=== PATIENT | male | born 1950 | race Caucasian/White ===

== ENCOUNTER 2024-08-14 14:15 | Day surgery (SDC) | payer OTHER, SELFPAY ==
[2024-08-14] VITALS (10 sets, daily range): BP systolic 97–122; BP diastolic 55–92; BMI 28.5
[2024-08-14 15:15] LABS: ACT-LR - POC 255 Seconds (116-155)
[2024-08-14 15:23] LABS: ACT-LR - POC 306 Seconds (116-155)
[2024-08-14 15:44] LABS: ACT-LR - POC 232 Seconds (116-155)
[2024-08-14 16:08] LABS: ACT-LR - POC 226 Seconds (116-155)
--- NOTE | 2024-08-14 16:22 | ITS.CL.CATH ---
[employer] - Catheterization
Cardiac Catheterization
Procedure Report:
ANGIOPLASTY REPORT
Date of Procedure: August 14, 2024
Referring: Dr. Osmin Ojeda
INDICATIONS: This is a 74-year-old gentleman who presented to [facility] with an acute evolving inferior wall myocardial infarction. He has a prior history of a traumatic brain injury and remote stenting of the LAD and RCA. Details of his
remote stenting are unknown. He had restenting of the mid RCA at [facility] in July 2023. The stent was deployed and implanted in the mid RCA and there was a segment in the proximal and mid portion of the stented segment that appeared
underexpanded. Dr. Ojeda post dilating the stent with a 3.5 mm noncompliant balloon as high as 26 yarely within the segment of underexpansion.
Apparently, the patient discontinued many of his medications. Compliance has been an issue with his old traumatic brain injury. He developed severe substernal chest tightness and presented to [facility] with an evolving inferior wall
myocardial infarction with occlusion of the RCA at the distal edge of the previously stented segment. An additional stent was placed from the distal edge of the old stent into the distal RCA proximal to the crux of the vessel. The area of stent
underexpansion underwent angioplasty using a noncompliant balloon with some improvement in luminal diameter, however, persistence of a significant waist and underexpansion. He is transferred from [facility] to [facility] for
shockwave and attempted redilation of the old stented segment.
PROCEDURES:
1. Balloon angioplasty of the mid right coronary artery followed by shockwave lithotripsy throughout the mid RCA with a 4.0 mm Shockwave balloon. The entire mid RCA was then redilated with a 3.5 mm then a 4.0 mm noncompliant balloon to high
pressures
ACCESS: Right radial artery, 6 [place] sheath
ANGIOPLASTY REPORT: Arterial access was obtained to the right radial artery and a 6 [place] sheath was inserted. Intravenous heparin was administered and the ACT was monitored throughout the remainder of the procedure and maintained within
therapeutic limits. The origin of the right coronary artery was cannulated with a 6 [place] 0.75 mm guide catheter which sat at the origin of the RCA well and provided excellent backup support. A BMW guidewire was advanced to the distal vessel.
We had participated significant difficulty in delivering equipment across the tortuous calcified segment in the mid RCA and a GuideLiner was advanced into the proximal portion of the stents in the mid RCA facilitating delivery of a 3.5 x 15 mm
noncompliant balloon. Serial high-pressure balloon inflations were performed across the mid RCA stenosis. The guide liner was advanced just to the underexpanded segment and the noncompliant balloon was removed. A 4.0 x 12 mm Shockwave balloon was
advanced to the area of stent underexpansion in the mid RCA. The balloon was inflated 2 to 4 yarely and intravascular lithotripsy therapy was delivered with a series of 10 pulses. The balloon was retracted a few millimeters and additional
intravascular lithotripsy therapies were administered. A total of 120 pulses of energy were delivered and the Shockwave balloon was then removed. A new 3.5 mm NC balloon was then advanced to the mid RCA and high pressure balloon inflations were
performed to 26 atmospheres. There was some improvement in stent expansion but the mid RCA stent remained not fully expanded. A 4.0 mm NC balloon was then advanced to the mid RCA and inflated to 21 atmospheres.
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 PCI was not undertaken given his history of medical noncompliance
COMPLICATIONS: None
RADIATION SUMMARY: Fluoro Time (min): 20.1, Dose (mGy): 867.7, DAP (Gy.cm2) : 66.1
CONCLUSION
1. Intravascular lithotripsy and high pressure post dilation of existing under-expanded mid RCA stents with a 4.0 mm Shockwave balloon and with 3.5 mm and 4.0 mm NC balloons with a nice angiographic result.
RECOMMENDATIONS
1. Uninterrupted dual antiplatelet therapy
2. Medical therapy for mid PDA stenosis. The mid PDA would be a reasonable target for stenting if he develops recurring anginal symptoms.
Copy to: Dr. Osmin Ojeda
[2024-08-14] MEDS: BRILINTA 90 MG PO (18:26)
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
[2024-08-17 08:57] LABS: ACT-LR - POC > 397 Seconds (116-155)
== END 2024-08-14 19:35 | disposition short-term general hospital (02) ==
LOC: CATH 14:15
PROVIDERS: ATTENDING PHYSICIAN Internal Medicine Interventional Cardiology; FAMILY PHYSICIAN Internal Medicine Cardiovascular Disease
DX: I25.10 Atherosclerotic heart disease of native coronary artery without angina pectoris (principal); I21.19 ST elevation (STEMI) myocardial infarction involving other coronary artery of inferior wall; I25.5 Ischemic cardiomyopathy; I48.21 Permanent atrial fibrillation; E78.5 Hyperlipidemia, unspecified; Z95.5 Presence of coronary angioplasty implant and graft; Z87.820 Personal history of traumatic brain injury
CPT/HCPCS: 92972; C1725; 85347; 92920; 93005; C1769; C1887; Q9967